=== PATIENT | female | born 1990 | race Caucasian/White ===

== ENCOUNTER 2020-10-25 23:58 | Emergency (ER) | payer MEDICAID, OTHER ==
[~2020-10-25] VITALS: Ht 170.2 cm; Wt 77.3 kg
[~2020-10-25 23:58] MED LIST: OLAN7.5T22 PO
[2020-10-26 01:02] LABS: BASOPHILS % (AUTO) 0.5 % (0.0-2.0); EOSINOPHILS % (AUTO) 1.1 % (1.0-6.0); HEMATOCRIT 32.5 % (36-46); HEMOGLOBIN 10.1 g/dL (12.0-16.0); LYMPHOCYTES # (AUTO) 1.2 K/uL (1.0-4.8); LYMPHOCYTES % (AUTO) 18.7 % (22.0-44.0); MEAN CORPUSCULAR HEMOGLOBIN 23.2 pg (26.0-34.0); MEAN CORPUSCULAR HGB CONC 31.2 G/dL (31.0-37.0); MEAN CORPUSCULAR VOLUME 75 fL (80-100); MONOCYTES # (AUTO) 0.5 K/uL (0.1-1.0); MONOCYTES % (AUTO) 7.2 % (2.0-9.0); NEUTROPHILS # (AUTO) 4.5 K/uL (1.8-7.7); NEUTROPHILS % (AUTO) 72.5 % (40.0-70.0); PLATELET COUNT (AUTO) 304 K/uL (150-450); RED BLOOD CELL COUNT(AUTO) 4.37 MIL/uL (4.00-5.20); RED CELL DISTRIBUTION WIDTH 16.1 % (11.5-14.5)
[2020-10-26 01:17] LABS: ANION GAP 6 mmol/L (8-16); CARBON DIOXIDE 28 mmol/L (22-29); CHLORIDE 103 mmol/L (98-107); CREATININE 0.93 mg/dL (0.60-1.30); GLOMERULAR FILTR. RATE CALC > 60 mL/min (>60); GLUCOSE,RANDOM 118 mg/dL (70-110); POTASSIUM 3.7 mmol/L (3.5-5.1); SODIUM SERUM 137 mmol/L (136-145); UREA NITROGEN, BLOOD 12 mg/dL (7-18)
[2020-10-26 01:24] LABS: AMMONIA 22 umol/L (11-32)
[2020-10-26 01:26] LABS: TROPONIN I < 0.02 ng/mL (0.00-0.05)
[2020-10-26 01:30] LABS: ALANINE AMINOTRANSFERASE 29 U/L (12-78); ALBUMIN 3.6 g/dL (3.4-5.0); ALKALINE PHOSPHATASE 57 U/L (46-116); ASPARTATE AMINOTRANSFERASE 22 U/L (15-37); BILIRUBIN,TOTAL 0.4 mg/dL (0.1-1.0); HCG,QUANTITATIVE 1 mIU/mL (0-6)
[2020-10-26 02:00] VITALS: BP 116/70
== END 2020-10-26 02:14 | disposition home or self-care (01) ==
LOC: EMS 10-26 00:02
DX: R55 Syncope and collapse (principal); F20.9 Schizophrenia, unspecified; F11.90 Opioid use, unspecified, uncomplicated
CPT/HCPCS: 80053; 82140; 82962; 84484; 84702; 85025; 93005; 99284; G0480; 82948

== ENCOUNTER 2021-04-26 18:20 | Emergency (ER) | payer OTHER | END 2021-04-26 19:30 | disposition left against medical advice (07) | LOC: EMS 18:27 | DX: R09.81 Nasal congestion (principal); Z53.21 Procedure and treatment not carried out due to patient leaving prior to being seen by health care provider ==

== ENCOUNTER 2022-06-28 00:42 | Inpatient (IN) | payer MEDICAID ==
[~2022-06-28] VITALS: Ht 167.6 cm; Wt 91.4 kg
[2022-06-28] MEDS ORDERED: NITR-75 PO (06:10)
[2022-06-28] MEDS ORDERED: INFLUENZA VIRUS VACCINE QVS 2022-23 (6MO+)/PF 60 MCG/0.5 ML SYRINGE IM. ONE (06:15)
[2022-06-28] MEDS ORDERED: HALOPERIDOL LACTATE 5 MG/ML VIAL ONE (06:24)
[2022-06-28] MEDS ORDERED: LORazepam 2 MG/ML VIAL ONE (06:24)
[2022-06-28] MEDS ORDERED: DiphenhydrAMINE HCL 50 MG/ML VIAL ONE (06:24)
[2022-06-28] MEDS ORDERED: LORazepam 2 MG/ML VIAL IM ONE ×2 (06:45)
[2022-06-28] MEDS ORDERED: HALOPERIDOL LACTATE 5 MG/ML VIAL IM ONE ×2 (06:45)
[2022-06-28] MEDS ORDERED: DiphenhydrAMINE HCL 50 MG/ML VIAL IM ONE ×2 (06:45)
[2022-06-28 11:01] VITALS: BP 149/89
[2022-06-28] MEDS: NITROFURANTOIN MONOHYD/M-CRYST 100 MG CAPSULE [MACROBID] PO SCH (16:07)
[2022-06-28] MEDS: OLANZapine 7.5 MG TABLET PO SCH (20:52)
[2022-06-28] MEDS: DIVALPROEX SODIUM 500 MG DR TABLET PO SCH (20:52)
[2022-06-29] MEDS: LORazepam 2 MG TABLET PO PRN (05:20)
[2022-06-29] MEDS: HALOPERIDOL 5 MG TABLET PO PRN (05:21)
[2022-06-29 06:27] VITALS: BP 142/89
[2022-06-29 07:17] LABS: BASOPHILS % (AUTO) 0.4 % (0.0-2.0); HEMATOCRIT 33.1 % (36-46); HEMOGLOBIN 10.7 g/dL (12.0-16.0); LYMPHOCYTES # (AUTO) 1.1 K/uL (1.0-4.8); LYMPHOCYTES % (AUTO) 14.3 % (22.0-44.0); MEAN CORPUSCULAR HEMOGLOBIN 26.1 pg (26.0-34.0); MEAN CORPUSCULAR HGB CONC 32.3 G/dL (31.0-37.0); MEAN CORPUSCULAR VOLUME 81 fL (80-100); MONOCYTES # (AUTO) 0.5 K/uL (0.1-1.0); MONOCYTES % (AUTO) 6.5 % (2.0-9.0); NEUTROPHILS # (AUTO) 5.9 K/uL (1.8-7.7); NEUTROPHILS % (AUTO) 75.8 % (40.0-70.0); PLATELET COUNT (AUTO) 367 K/uL (150-450); RED BLOOD CELL COUNT(AUTO) 4.09 MIL/uL (4.00-5.20); RED CELL DISTRIBUTION WIDTH 15.3 % (11.5-14.5)
[2022-06-29 07:32] LABS: HEMOGLOBIN A1C 5.6 % (3.8-5.6)
[2022-06-29 07:45] LABS: ALANINE AMINOTRANSFERASE 22 U/L (12-78); ALKALINE PHOSPHATASE 71 U/L (46-116); ANION GAP 6 mmol/L (8-16); ASPARTATE AMINOTRANSFERASE 23 U/L (15-37); BILIRUBIN,TOTAL 0.2 mg/dL (0.1-1.0); CALCIUM, TOTAL 8.7 mg/dL (8.8-10.5); CARBON DIOXIDE 30 mmol/L (22-29); CHLORIDE 102 mmol/L (98-107); CHOLESTEROL 161 mg/dL (131-200); CREATININE 0.83 mg/dL (0.60-1.30); FREE T4 (FREE THYROXINE) 1.05 ng/dL (0.76-1.46); GLUCOSE,RANDOM 106 mg/dL (70-110); HDL CHOLESTEROL 80 mg/dL (40-60); LDL CHOL (CALC.) 72 mg/dL (0-130); SODIUM SERUM 138 mmol/L (136-145); THYROID STIMULATING HORMONE 1.16 uIU/mL (0.36-3.74); TOTAL PROTEIN, SERUM 6.6 g/dL (6.4-8.2); TRIGLYCERIDES 45 mg/dL (15-150); UREA NITROGEN, BLOOD 15 mg/dL (7-18)
[2022-06-29 07:46] LABS: GLOMERULAR FILTR. RATE CALC > 60 mL/min (>60)
[2022-06-29 08:16] VITALS: BP 136/88
[2022-06-29] MEDS: DIVALPROEX SODIUM 500 MG DR TABLET PO SCH ×2 (08:41→20:46)
[2022-06-29] MEDS: OLANZapine 7.5 MG TABLET PO SCH ×2 (08:41→20:47)
[2022-06-29] MEDS: NITROFURANTOIN MONOHYD/M-CRYST 100 MG CAPSULE [MACROBID] PO SCH ×2 (08:41→16:22)
[2022-06-29] MEDS: ZOLPIDEM TARTRATE 10 MG TABLET PO PRN (21:36)
[2022-06-30] MEDS: HALOPERIDOL 5 MG TABLET PO PRN (06:26)
[2022-06-30] MEDS: LORazepam 2 MG TABLET PO PRN ×2 (06:26→21:08)
[2022-06-30] MEDS: OLANZapine 7.5 MG TABLET PO SCH ×2 (08:17→19:52)
[2022-06-30] MEDS: DIVALPROEX SODIUM 500 MG DR TABLET PO SCH ×2 (08:17→19:52)
[2022-06-30] MEDS: NITROFURANTOIN MONOHYD/M-CRYST 100 MG CAPSULE [MACROBID] PO SCH ×2 (08:17→16:54)
[2022-06-30 08:57] VITALS: BP 111/88
[2022-06-30 15:45] VITALS: BP 141/84
[2022-06-30] MEDS ORDERED: ONDANSETRON HCL 4 MG TABLET PO PRN (16:30)
[2022-06-30] MEDS ORDERED: PETROLATUM,WHITE 28 GM JELLY TP PRN (16:30)
[2022-06-30] MEDS ORDERED: NICOTINE 14 MG/24 HOUR PATCH TD PRN (16:30)
[2022-06-30] MEDS ORDERED: MAG HYDROX/AL HYDROX/SIMETH ES 30 ML SUSPENSION UDCUP PO PRN (16:30)
[2022-06-30] MEDS ORDERED: ALBUTEROL SULFATE HFA 90 MCG/PUFF 8 GM INHALER IH PRN (16:30)
[2022-06-30] MEDS ORDERED: GuaiFENesin/D-METHORPHAN [SUGAR-FREE] 200-20MG/10 ML SYRUP UDCUP PO PRN (16:30)
[2022-06-30] MEDS ORDERED: LOPERAMIDE HCL 2 MG CAPSULE PO PRN (16:30)
[2022-06-30] MEDS ORDERED: DOCUSATE SODIUM 100 MG CAPSULE PO PRN (16:30)
[2022-06-30] MEDS ORDERED: CloNIDine HCL 0.1 MG TABLET PO PRN (16:30)
[2022-06-30] MEDS ORDERED: ACETAMINOPHEN 325 MG TABLET PO PRN (16:30)
[2022-06-30] MEDS ORDERED: IBUPROFEN 400 MG TABLET PO PRN (16:30)
[2022-06-30] MEDS ORDERED: MAGNESIUM HYDROXIDE SUSPENSION 30 ML UDCUP PO PRN (16:30)
[2022-06-30] MEDS ORDERED: LITH600C5 PO (16:39)
[2022-06-30] MEDS ORDERED: QUET300T19 PO (16:39)
[2022-06-30] MEDS ORDERED: CHOL100062 PO (16:39)
[2022-06-30] MEDS ORDERED: QUET50TA24 PO (16:39)
[2022-06-30 20:51] VITALS: BP 118/82
[2022-07-01] MEDS: HALOPERIDOL 5 MG TABLET PO PRN (01:52)
[2022-07-01] MEDS: DIVALPROEX SODIUM 500 MG DR TABLET PO SCH ×2 (08:52→20:13)
[2022-07-01] MEDS: OLANZapine 7.5 MG TABLET PO SCH ×2 (08:52→20:13)
[2022-07-01] MEDS: NITROFURANTOIN MONOHYD/M-CRYST 100 MG CAPSULE [MACROBID] PO SCH ×2 (08:52→17:01)
[2022-07-01 09:01] VITALS: BP 121/76
[2022-07-01 18:56] LABS: GLUCOMETER DEV NAME(LOC) POC.BV
[2022-07-01 21:07] VITALS: BP 116/61
[2022-07-02] MEDS: ZOLPIDEM TARTRATE 10 MG TABLET PO PRN (00:37)
[2022-07-02 07:53] LABS: APPEARANCE,URINE CLEAR (CLEAR); BILIRUBIN,URINE NEGATIVE (NEGATIVE); GLUCOSE, URINE (UA) NEGATIVE (NEGATIVE); KETONES,URINE NEGATIVE (NEGATIVE); LEUKOCYTE ESTERASE ,URINE SMALL (NEGATIVE); NITRATE,URINE NEGATIVE (NEGATIVE); OCCULT BLOOD,URINE NEGATIVE (NEGATIVE); PH,URINE 6.5 (5.0-8.0); PROTEIN,URINE NEGATIVE (NEGATIVE); SPECIFIC GRAVITIY, URINE 1.012 (1.003-1.030); UROBILINOGEN,URINE <=1.0 mg/dL (<=1.0)
[2022-07-02 08:05] LABS: BACTERIA,URINE Rare /HPF (None Seen); RBC,URINE 0-2 /HPF (0-2); SQUAMOUS EPITHELIAL CELL,UR Rare /LPF (None Seen)
[2022-07-02] MEDS: NITROFURANTOIN MONOHYD/M-CRYST 100 MG CAPSULE [MACROBID] PO SCH (08:06)
[2022-07-02] MEDS: OLANZapine 7.5 MG TABLET PO SCH (08:06)
[2022-07-02] MEDS: DIVALPROEX SODIUM 500 MG DR TABLET PO SCH (08:06)
[2022-07-02 08:18] VITALS: BP 120/80
[2022-07-02] MEDS ORDERED: OLAN7.5T22 PO (10:07)
[2022-07-02] MEDS ORDERED: DIVA-112 PO (10:07)
[2022-07-02] MEDS ORDERED: NITR-75 PO (10:19)
== END 2022-07-02 13:25 | disposition home or self-care (01) | DRG 750 ==
LOC: B3A 02:40
PROVIDERS: ADMIT Psychiatry & Neurology Psychiatry; ATTEND Psychiatry & Neurology Psychiatry
DX: F25.0 Schizoaffective disorder, bipolar type (principal); R45.851 Suicidal ideations; E83.42 Hypomagnesemia; F15.10 Other stimulant abuse, uncomplicated; Z20.822 Contact with and (suspected) exposure to COVID-19; N39.0 Urinary tract infection, site not specified; Z79.899 Other long term (current) drug therapy
CPT/HCPCS: 80053; 80061; 81001; 83036; 83735; 84439; 84443; 84703; 85025; 87086; 87186; J1200; J1630; J2060